=== PATIENT | male | born 1965 | race Caucasian/White ===

== ENCOUNTER 2016-12-17 08:41 | Outpatient (CLI) | payer OTHER | END 2016-12-17 08:42 | disposition home or self-care (01) | DX: M47.816 Spondylosis without myelopathy or radiculopathy, lumbar region (principal); M51.37 Other intervertebral disc degeneration, lumbosacral region ==

== ENCOUNTER 2018-03-07 10:10 | Outpatient (CLI) | payer OTHER | END 2018-03-07 10:11 | disposition home or self-care (01) | LOC: SC 10:10 | PROVIDERS: ATTEND Internal Medicine Pulmonary Disease | DX: G47.33 Obstructive sleep apnea (adult) (pediatric) (principal) | CPT/HCPCS: 99212; 99213 ==

== ENCOUNTER 2019-03-27 14:23 | Outpatient (CLI) | payer OTHER | END 2019-03-27 14:24 | disposition home or self-care (01) | LOC: SC 14:23 | PROVIDERS: ATTEND Internal Medicine Pulmonary Disease | DX: G47.33 Obstructive sleep apnea (adult) (pediatric) (principal) | CPT/HCPCS: 99212; 99213 ==

== ENCOUNTER 2021-09-15 09:11 | Outpatient (CLI) | payer OTHER ==
--- NOTE | 2021-09-15 11:36 | XRAY Report ---
PROCEDURE: Knee 4 View LT INDICATIONS: L KNEE PX TECHNIQUE: 4 views of the left knee(s) were acquired. COMPARISON: None. FINDINGS: Bones: No fractures or dislocations. Mild tricompartmental osteoarthritis is seen. No suspicious oly ny lesions. Soft tissues: Small to moderate suprapatellar joint effusion is noted. No suspicious soft tissue bouchra cifications. IMPRESSION: Mild tricompartmental osteoarthritis in left knee with small to moderate suprapatellar edy int effusion. No fracture or dislocation. Reviewed by: Natan Burrell MD on 09/15/2021 11:34 AM PST Approved by: Natan Burrell MD on 09/15/2021 11:34 AM PST Station ID: [id number]
== END 2021-09-15 23:59 | disposition home or self-care (01) ==
LOC: DI.N 09:11
PROVIDERS: ATTEND Physician Assistant
DX: M17.12 Unilateral primary osteoarthritis, left knee (principal); M25.462 Effusion, left knee